=== PATIENT | female | born 1935 | race Caucasian/White ===

== ENCOUNTER 2017-02-26 13:17 | Inpatient (IN) | payer MEDICARE, MEDICAID ==
[~2017-02-26] VITALS: Ht 152.4 cm; Wt 71.9 kg
--- NOTE | 2017-02-26 00:20 | NUR ---
ACACIA ADMIN: PT REQUESTED ACACIA, WILL ADMINISTER AND CONTINUE TO FOLLOW UP. Addendum: 02/27/17 at 0245 by ALFA BOYER RN INCORRECT TIME/DATE RECORDED.
--- NOTE | 2017-02-26 14:15 | NUR ---
DIRECTOR SALES AND TRADE MARKETING NOTES PATIENT DIRECT ADMIT, 82 Y/OLD, ON DX OF CHEST PAIN, HYPERTENSION, DM. PATIENT ESTONIAN SPEAKER, V/S TAKE BP -176/75, P-60, R-19, O2-97 ROOM AIR, T-97.8, PATIENT SKIN ASSESSMENT DONE SKIN CLEAR, AMBULATORY, C/O PAIN 07/03, NO RESPIRATORY DISTRESS, BUT PATIENT REFUSED PAIN MEDICATION. SCHEDULED MEDICATION ADMINISTERED. NEEDS ATTENDED AND ANTICIPATED. MRSA OF NARES SWAB TAKEN. CALL WHITE WITHIN TO REACH, BED ALARM ON. SAFETY PRECAUTION MAINTAINED ALL THE TIME.
[2017-02-26 14:17] VITALS: BP 176/75
[2017-02-26] MEDS ORDERED: HYDROCODONE/APAP 5/325MG 1 EACH TABLET PO PRN (14:30)
[2017-02-26] MEDS ORDERED: Z GUARD REMEDY 2 OZ OINT TP PRN (14:30)
[2017-02-26] MEDS ORDERED: MAG HYDROX/AL HYDROX/SIMETH 30 ML UDC PO PRN (14:30)
[2017-02-26] MEDS ORDERED: ONDANSETRON HCL/PF 4 MG/2 ML VIAL IVP PRN (14:30)
[2017-02-26] MEDS ORDERED: MAGNESIUM HYDROXIDE 30 ML UDC PO PRN (14:30)
[2017-02-26] MEDS ORDERED: METOPROLOL TARTRATE 25 MG TABLET PO SCH (14:30)
[2017-02-26] MEDS ORDERED: ACETAMINOPHEN 325 MG TABLET PO PRN (14:30)
[2017-02-26] MEDS ORDERED: MORPHINE SULFATE INJ 10 MG/ML DISP.SYRIN IV PRN (14:30)
[2017-02-26] MEDS ORDERED: ASPI-991 PO (14:39)
[2017-02-26] MEDS ORDERED: LOSA1TAB3 PO (14:39)
[2017-02-26] MEDS ORDERED: GABA-534 PO (14:39)
[2017-02-26] MEDS ORDERED: AMLO5TAB4 PO (14:39)
[2017-02-26] MEDS ORDERED: SITA50TA PO (14:39)
[2017-02-26] MEDS ORDERED: METO25TA3 PO (14:39)
[2017-02-26] MEDS ORDERED: CAPT25TA3 PO (14:39)
[2017-02-26] MEDS ORDERED: CLOP75TA2 PO (14:39)
[2017-02-26] MEDS ORDERED: ROSU10TA PO (14:41)
[2017-02-26] MEDS ORDERED: VORT10TA PO (14:42)
[2017-02-26 16:00] VITALS: BP 170/80
--- NOTE | 2017-02-26 17:00 | NUR ---
RN NOTES PATIENT V/S TAKEN BP- 201/88, P-67, PATIENT ANXIOUS, IV PUSH ADMINISTERED APRESOLINE 10 MG/ML IV PUSH, ALSO ADMINISTERED SCHEDULED MEDICATION, OFFERED MORPHINE FOR PAIN BUT PATIENT REFUSED, NEEDS ATTENDED AND ANTICIPATED. PATIENT AMBULATORY, CONTINENT, NEEDS ATTENDED AND ANTICIPATED. CALL LIGHT WITHIN TO REACH, SAFETY PRECAUTION MAINTAINED ALL THE TIME.
[2017-02-26] MEDS: NITROGLYCERIN 30 GM TUBE TOP SCH ×2 (17:38→21:00)
[2017-02-26] MEDS: GABAPENTIN 300 MG CAPSULE PO SCH (17:38)
[2017-02-26] MEDS: ENOXAPARIN SODIUM 30 MG/0.3 ML DISP.SYRIN SQ SCH (18:06)
[2017-02-26] MEDS: hydrALAZINE HCL IV 20 MG VIAL IV PRN (18:13)
--- NOTE | 2017-02-26 19:00 | NUR ---
RN NOTES V/S RETAKEN AFTER MEDICATION BP-157/79, P-78, R-19. PATIENT CALM AT THIS TIME. FAMILY NEXT TO THE BED, NO ACUTE /NO RESPIRATORY DISTRESS AT THIS TIME. IV LINE ON LEFT AC AREA,PATIENT OM TELE MONITOR HR-65. PATIENT LYING IN THE BED, CALL LIGHT WITHIN TO REACH, ENDORSED ONCOMING NURSE FOR CONTINUATION OF CARE.
--- NOTE | 2017-02-26 19:30 | NUR ---
RN INITIAL NOTES: RECEIVED REPORT FROM JOSE VASQUES, PT IN BED, AWAKE, A/O X3 ON RA, ABLE TO UNDERSTAND AND SPEAK BASIC CYMRO, DENIES ANY CHEST PAIN ONLY CONCERNED ABOUT BLOOD PRESSURE. PT HAS LEFT AC G20, PATENT AND FLUSHING WELL, ON HL. ON TELE SINUS RHYTHM HR 91. SAFETY PRECAUTIONS FOR FALL INITIATED CALL LIGHT IN REACH, WILL CONTINUE TO MONITOR
[2017-02-26 20:00] VITALS: BP 157/79
[2017-02-26 21:00] VITALS: BP 154/71
--- NOTE | 2017-02-26 21:00 | NUR ---
NON ADMIN NITROL OINTMENT: PT RECEIVED NITROL OINTMENT AT 1738, NITROL OINTMENT SCHEDULE Q8HR, IT SONLY BEEN 3HRS, BP IS 154/71 HR 78, DENIES ANY CHEST PAIN AT THIS TIME, NITROL OINTMENT NOT ADMINISTERED AT THIS TIME, TOO CLOSE TO ADMINISTER, WILL ADMINISTER THE MEDICATION AT 0500AM TO FOLLOW WITH THE SCHEDULE MEDS, RELAYED TO ORTHOPAEDIC SURGEON
[2017-02-27] VITALS (9 sets, daily range): BP systolic 126–167; BP diastolic 66–82
--- NOTE | 2017-02-27 | NUR ---
ACCU CHECK: BLOOD SUGAR CHECKED AND REVEAL 104, NO INSULIN COVERAGE AT THIS TIME, WILL MONITOR PT FOR ANY S/S OF HYPO OR HYPER GLYCEMIA
--- NOTE | 2017-02-27 00:20 | NUR ---
ACACIA ADMIN: PT REQUESTED ACACIA, WILL ADMINISTER AND CONTINUE TO FOLLOW UP.
[2017-02-27] MEDS: ZOLPIDEM TARTRATE 5 MG TABLET PO PRN ×2 (00:25→23:01)
[2017-02-27] MEDS: BLOOD SUGAR DIAGNOSTIC 1 EACH STRIP IN SCH ×4 (00:27→17:01)
--- NOTE | 2017-02-27 02:30 | NUR ---
RN NOTES: PT SLEEPING AT THIS TIME, APPEARS CALM AND COMFORTABLE
[2017-02-27] MEDS: NITROGLYCERIN 30 GM TUBE TOP SCH (05:00)
--- NOTE | 2017-02-27 06:40 | NUR ---
rn closing notes: pt in bed, awake, denies any chest pain, bp wnl, nitro patch on left cw. iv access remains patent and flushing well. remains sinus rhythm hr 70, vs remain stable, needs attended, safety precautions for fall remains engaged, call light in reach, will endorse to day rn for chester.
--- NOTE | 2017-02-27 07:15 | NUR ---
RN OPEN NOTES RECEIVED REPORT FROM CHIEF MATE NURSE. PATIENT IS IN BED, ALERT AND ORIENTED TO NAME, PLACE AND TIME. NO SIGNS AND SYMPTOMS OF DISTRESS. DENIED PAIN. BED IN LOW POSITION, LOCKED AND 2 SIDE RAILS ARE UP. CALL LIGHT WITHIN REACH. WILL CONTINUE TO MONITOR AND ASSESS PATIENT THROUGH OUT MY SHIFT
--- NOTE | 2017-02-27 07:25 | NUR ---
DR WANG AT BEDSIDE
[2017-02-27 07:27] LABS: BASOPHILS % (AUTO) 0.4 % (0.0-2.0); EOSINOPHILS # (AUTO) 0.2 /CMM (0.0-0.7); EOSINOPHILS % (AUTO) 2.7 % (0.0-6.0); HEMATOCRIT 42 % (33-45); HEMOGLOBIN 13.9 g/dL (11.5-14.8); LYMPHOCYTES # (AUTO) 1.6 /CMM (0.8-4.8); LYMPHOCYTES % (AUTO) 24.3 % (20.0-44.0); MEAN CORPUSCULAR HEMOGLOBIN 29 PG (26.0-33.0); MEAN CORPUSCULAR HGB CONC 34 g/dl (31.0-36.0); MEAN CORPUSCULAR VOLUME 86 fL (82-100); MONOCYTES # (AUTO) 0.7 /CMM (0.1-1.30); MONOCYTES % (AUTO) 10.6 % (2.0-12.0); NEUTROPHILS # (AUTO) 4.1 /CMM (1.8-8.9); PLATELET COUNT (AUTO) 263 /CMM (150-450); RDW COEFFICIENT OF VARIATION 13.5 (11.5-15.0); RED BLOOD CELL COUNT(AUTO) 4.85 MIL/uL (4.0-5.2); WHITE BLOOD COUNT (AUTO) 6.7 K/uL (4.3-11.0)
[2017-02-27 07:44] LABS: CHOLESTEROL 245 mg/dL (<200); HDL CHOLESTEROL 37 mg/dL (40-60); LDL 174 mg/dL (0-99); TRIGLYCERIDES 154 mg/dL (30-150)
[2017-02-27 07:47] LABS: CALCIUM, SERUM 8.9 mg/dL (8.5-10.1); CARBON DIOXIDE 27 mmol/L (21-32); CHLORIDE 106 mmol/L (98-107); CREATININE 0.9 mg/dL (0.6-1.3); GLUCOSE 102 mg/dL (74-106); PHOSPHORUS 3.9 mg/dL (2.5-4.9); POTASSIUM 4.1 mmol/L (3.5-5.1); SODIUM SERUM 142 mmol/L (136-145); UREA NITROGEN, BLOOD 21 mg/dL (7-18)
[2017-02-27] MEDS: NITROGLYCERIN 30 GM TUBE TP SCH ×2 (08:14→21:02)
[2017-02-27] MEDS: CARVEDILOL 12.5 MG TABLET PO SCH ×2 (08:16→20:13)
[2017-02-27] MEDS: METOPROLOL SUCCINATE 25 MG TAB.SR.24H PO SCH (08:17)
[2017-02-27] MEDS: CLOPIDOGREL BISULFATE 75 MG TABLET PO SCH (08:17)
[2017-02-27] MEDS: VALSARTAN 80 MG TABLET PO SCH (08:18)
[2017-02-27] MEDS: AMLODIPINE BESYLATE 5 MG TABLET PO SCH ×3 (08:19→16:02)
[2017-02-27] MEDS: GABAPENTIN 300 MG CAPSULE PO SCH ×2 (08:20→16:03)
[2017-02-27] MEDS: ASPIRIN EC 81 MG TABLET.DR PO SCH (08:20)
[2017-02-27] MEDS: PANTOPRAZOLE 40 MG TABLET.DR PO SCH (08:21)
[2017-02-27] MEDS: ATORVASTATIN 10 MG TABLET PO SCH (08:21)
[2017-02-27 08:22] LABS: THYROID STIMULATING HORMONE 1.099 uIU/mL (0.358-3.74)
[2017-02-27] MEDS ORDERED: ASPIRIN 81 MG TAB.CHEW PO SCH (09:00)
[2017-02-27] MEDS ORDERED: CAPTOPRIL 25 MG TABLET PO SCH (09:00)
[2017-02-27] MEDS ORDERED: LOSARTAN/HCTZ 50-12.5MG/ 1 EA TABLET PO SCH (09:00)
--- NOTE | 2017-02-27 09:00 | NUR ---
PATIENT REFUSED NORVASC
[2017-02-27] MEDS ORDERED: HYDROMORPHONE 1 MG/1 ML DISP.SYRIN IV PRN (12:30)
--- NOTE | 2017-02-27 16:00 | NUR ---
SBP 167. HYDRALAZINE IV ADMINISTERED. 0900 DOSE OF NORVASC ADMINISTERED (AFTER PATIENT REFUSED IT IN AM)
[2017-02-27] MEDS: hydrALAZINE HCL IV 20 MG VIAL IV PRN (16:05)
--- NOTE | 2017-02-27 17:00 | NUR ---
PATIENT REFUSED TO HAVE HER BLOOD SUGAR CHECKED
--- NOTE | 2017-02-27 18:44 | NUR ---
RN CLOSING NOTES PATIENT IS IN BED. ALERT AND ORIENTED TO NAME, PLACE AND TIME. NO SIGNS AND SYMPTOMS OF DISTRESS. DENIED PAIN. PATIENT IS AMBULATORY. BED IN LOW POSITION, LOCKED AND TWO SIDE RAILS ARE UP. CALL LIGHT WITHIN REACH. IV SITE IN INTACT AND PATENT. ALL NURSING CARE ANTICIPATED AND ATTENDED FOR. CT ANGIO HEART W/ 3D FOR WEDNESDAY IN AM; CONSENT IS NEEDED 24 HOURS PRIOR TO PROCEDURE. WILL ENDORSE TO DRYING UNIT FELTING MACHINE OPERATOR NURSE FOR CLEVE.
--- NOTE | 2017-02-27 20:32 | NUR ---
RN INITIAL NOTES: RECEIVED REPORT FROM BRENDAN VASQUES, PT IN BED, AWAKE, A/O X3 ON RA, ABLE TO UNDERSTAND AND SPEAK BASIC BRUNEIAN, DENIES ANY CHEST PAIN ONLY CONCERNED ABOUT BLOOD PRESSURE. PT HAS LEFT FA G22, PATENT AND FLUSHING WELL, ON HL. SAFETY PRECAUTIONS FOR FALL INITIATED CALL LIGHT IN REACH, WILL CONTINUE TO MONITOR
[2017-02-27] MEDS: ENOXAPARIN SODIUM 30 MG/0.3 ML DISP.SYRIN SQ SCH (21:04)
--- NOTE | 2017-02-27 23:01 | NUR ---
PRN AMBIEN: PT REQUESTED FOR SLEEPING PILL, PRN AMBIEN 5MG TAB PO ADMINISTERED TO THE PT AT THIS TIME, WILL CONTINUE TO MONITOR AND REASSESS
[2017-02-28] VITALS (7 sets, daily range): BP systolic 122–161; BP diastolic 60–79
--- NOTE | 2017-02-28 | NUR ---
PT REFUSED TO HAVE HER BLOOD SUGAR CHECKED
[2017-02-28] MEDS: BLOOD SUGAR DIAGNOSTIC 1 EACH STRIP IN SCH ×4 (06:39→16:38)
--- NOTE | 2017-02-28 06:40 | NUR ---
BLOOD SUGAR CHECK: 95. NO COVERAGE PER MD
--- NOTE | 2017-02-28 06:45 | NUR ---
RN CLOSING NOTES: PT IN BED, AWAKE, DENIES ANY CHEST PAIN, BP WNL, NITRO PATCH ON RIGHT CW. IV ACCESS REMAINS PATENT AND FLUSHING WELL. VS REMAIN STABLE, NEEDS ATTENDED, SAFETY PRECAUTIONS FOR FALL REMAINS ENGAGED, CALL LIGHT WITHIN REACH, WILL ENDORSE TO DAY RN FOR CLEVE.
--- NOTE | 2017-02-28 08:00 | NUR ---
RN NOTES RECEIVED PATIENT IN THE ROOM, A/O X3, NIUEAN SPEAKER, PATIENT HAS NO RESPIRATORY DISTRESS, V/S STABLE, IV HEP LINE LEFT FOREARM INTACT, NO C/O PAIN, NO ACUTE DISTRESS, V/S TAKEN STABLE, PATIENT MED COMPLIANT, PATIENT AMBULATORY, REFUSED DVT PUMP, CONTINENT,N NEEDS ATTENDED AND ANTICIPATED, CALL WHITE WITHIN TO REACH, SAFETY PRECAUTION MAINTAINED ALL THE TIME.
[2017-02-28] MEDS: CARVEDILOL 12.5 MG TABLET PO SCH ×2 (09:00→20:02)
[2017-02-28] MEDS: PANTOPRAZOLE 40 MG TABLET.DR PO SCH (09:00)
[2017-02-28] MEDS: ATORVASTATIN 10 MG TABLET PO SCH (09:01)
[2017-02-28] MEDS: VALSARTAN 80 MG TABLET PO SCH (09:01)
[2017-02-28] MEDS: CLOPIDOGREL BISULFATE 75 MG TABLET PO SCH (09:01)
[2017-02-28] MEDS: GABAPENTIN 300 MG CAPSULE PO SCH ×2 (09:02→16:36)
[2017-02-28] MEDS: ASPIRIN EC 81 MG TABLET.DR PO SCH (09:02)
[2017-02-28] MEDS: AMLODIPINE BESYLATE 5 MG TABLET PO SCH (09:02)
[2017-02-28] MEDS: METOPROLOL SUCCINATE 25 MG TAB.SR.24H PO SCH (09:03)
[2017-02-28] MEDS: NITROGLYCERIN 30 GM TUBE TP SCH ×2 (09:04→20:02)
--- NOTE | 2017-02-28 10:22 | NUR ---
RN NOTES PATIENT IN THE ROOM, FAMILY NEXT TO THE BED, NO ACUTE DISTRESS, STABLE AT THIS TIME, CALL WHITE WITHIN TO REACH, SAFETY PRECAUTION MAINTAINED ALL THE TIME.
--- NOTE | 2017-02-28 15:00 | NUR ---
RN NOTES PATIENT IN THE ROOM, RESTING IN THE BED, NO ACUTE DISTRESS, NO RESPIRATORY DISTRESS AT THIS TIME, BS-71 MG/DL, CALL LIGHT WITHIN TO REACH, ENCOURAGED TO EXPRESS FEELINGS AND CONCERNS, SAFETY PRECAUTION, AND FALL PRECAUTION MAINTAINED ALL THE TIME. ENCOURAGED TO INCREASE FLUID INTAKE TOLERATED. CONTINUED MONITORING.
--- NOTE | 2017-02-28 16:39 | NUR ---
rn notes PATIENT IN THE ROOM, NO ACUTE DISTRESS, BS-115 MG/DL, V/S RETAKEN BOTH ARMS, LEFT ARM BP 138/70. P-63, RIGHT ARM BP 124/64, P-67, PATIENT REFUSED 1700 NEURONTIN, NO ACUTE DISTRESS. PT AMBULATORY SELF CARE, CALL WHITE NEAR TO REACH, SAFETY PRECAUTION MAINTAINED ALL THE TIME.
--- NOTE | 2017-02-28 19:00 | NUR ---
RN NOTES PATIENT IN THE BED RESTING QUIETLY, V/S STABLE, MED COMPLIANT, NO ACUTE DISTRESS, NO RESPIRATORY DISTRESS. CALL WHITE WITHIN TO REACH, SAFETY PRECAUTION MAINTAINED ALL THE TIME. ENDORSED ONCOMING NURSE FOR FOLLOW CONTINUATION OF CARE.
--- NOTE | 2017-02-28 19:30 | NUR ---
RN NOTES RECEIVED PATIENT IN BED AWAKE, OA X 3, ABLE TO MAKE NEEDS KNOWN. NO ACUTE DISTRESS NOTED. DENIES ANY PAIN AT THIS TIME. IV SITE PATENT, INTACT; FLUSHED. ON LOW BED WITH BILATERAL UPPER SIDE RAILS UP. SAFETY REMINDERS GIVEN. CALL LIGHT WITHIN EASY REACH. WILL CONTINUE TO MONITOR.
[2017-02-28] MEDS: ENOXAPARIN SODIUM 30 MG/0.3 ML DISP.SYRIN SQ SCH (20:07)
[2017-02-28] MEDS: ZOLPIDEM TARTRATE 5 MG TABLET PO PRN (21:50)
[2017-03-01] MEDS: BLOOD SUGAR DIAGNOSTIC 1 EACH STRIP IN SCH ×5 (06:37→22:00)
--- NOTE | 2017-03-01 06:53 | NUR ---
RN NOTES PATIENT ASLEEP, EASILY AROUSABLE. RESPIRATIONS EVEN. NO SIGNS OF PAIN NOTED. NO SYMPTOMS OF HYPER/HYPOGLYCEMIA. DUE MEDS GIVEN WITH NO ASE NOTED. NEEDS ATTENDED. SAFETY PRECAUTIONS AND COMFORT MEASURES IN PLACE. WILL GIVE REPORT TO DAY SHIFT FOR CONTINUITY OF CARE.
--- NOTE | 2017-03-01 07:30 | NUR ---
MS RN RECEIVED ONBED, AWAKE,ALERT,ORIENTED X4,UZBEK SPAEKING LADY, NOT IN ANY FORM OF DISTRESS, RESPIRATIONS EVEN AND UNLABORED,NO SOB NOTED, DENIES PAIN AT THIS TIME, WILL MONITOR PATIENT.
[2017-03-01 08:00] VITALS: BP 146/74
--- NOTE | 2017-03-01 08:30 | NUR ---
RN NPO AT THIS TIME, FOE CT ANGIO TODAY.
[2017-03-01] MEDS: NITROGLYCERIN 30 GM TUBE TP SCH (09:00)
[2017-03-01] MEDS ORDERED: IOHEXOL-350 100 ML VIAL IV ONE (11:21)
[2017-03-01] MEDS ORDERED: CT SWABBABLE VALVE TRANS SET 1 EA INFUS.SET MC ONE (11:21)
[2017-03-01] MEDS ORDERED: IV NS 0.9% 250 ML IV ONE (11:22)
--- NOTE | 2017-03-01 11:25 | NUR ---
ms rn went down for ct angio,all needs attended.
--- NOTE | 2017-03-01 11:30 | NUR ---
OVERHAULER HELPER RECEIVED PT FROM 3W TO CTA AOX4 NO DISTRESS NOTED STARTED IV R AC G 18 PLACED PT ON 4LNC AND MONITOR FOR HR, STANDING ORDERS FOLLOWED WILL CONTINUE TO MONITOR AND START PROCEDURE.
[2017-03-01] MEDS ORDERED: NITROGLYCERIN 0.4 MG/TAB BOTTLE ONE (11:40)
[2017-03-01] MEDS ORDERED: METOPROLOL TARTRATE INJ 5 MG/5 ML AMPUL ONE (11:41)
[2017-03-01] MEDS ORDERED: DEXTROSE 50%-WATER 50 ML DISP.SYRIN IV PRN (12:30)
[2017-03-01] MEDS ORDERED: INSULIN REGULAR, HUMAN 100 UNIT/ML 3 ML VIAL SQ PRN (12:30)
[2017-03-01] MEDS: PANTOPRAZOLE 40 MG TABLET.DR PO SCH (12:53)
[2017-03-01] MEDS: GABAPENTIN 300 MG CAPSULE PO SCH ×2 (12:53→15:51)
[2017-03-01] MEDS: ATORVASTATIN 10 MG TABLET PO SCH (12:53)
[2017-03-01] MEDS: CLOPIDOGREL BISULFATE 75 MG TABLET PO SCH (12:53)
[2017-03-01] MEDS: ASPIRIN EC 81 MG TABLET.DR PO SCH (12:53)
[2017-03-01] MEDS: VALSARTAN 80 MG TABLET PO SCH (12:54)
[2017-03-01] MEDS: METOPROLOL SUCCINATE 25 MG TAB.SR.24H PO SCH (12:55)
[2017-03-01] MEDS: AMLODIPINE BESYLATE 5 MG TABLET PO SCH (15:51)
[2017-03-01] MEDS: CARVEDILOL 12.5 MG TABLET PO SCH ×2 (15:51→21:00)
[2017-03-01 16:00] VITALS: BP 170/83
[2017-03-01] MEDS ORDERED: NITROGLYCERIN 30 GM TUBE TP SCH (16:00)
--- NOTE | 2017-03-01 16:00 | NUR ---
ms rn due meds given, blood pressure high, dr. goins is aware,w/ orders made and carried out.
--- NOTE | 2017-03-01 16:30 | NUR ---
ms rn for cardiac cath in am per dr. goins order, patient will be npo post midnight, daughter is aware.
--- NOTE | 2017-03-01 17:00 | NUR ---
ms rn - bp rechecked, 132/70, no distress noted.
[2017-03-01] MEDS: hydrALAZINE HCL 50 MG TABLET PO SCH (17:38)
--- NOTE | 2017-03-01 18:18 | NUR ---
ms rn on bed, no distress noted,all needs attended.
--- NOTE | 2017-03-01 19:35 | NUR ---
TELE/RN NOTES RECEIVED PT. LYING IN BED RESTING. PT. IS EASILY AROUSABLE TO NAME. BREATHING EVEN AND UNLABORED ON ROOM AIR. NO SOB, RESPIRATORY DISTRESS OR COMPLAINTS OF PAIN NOTED AT THIS TIME. NO COMPLAINTS OF CHEST PAIN NOTED AT THIS TIME. PT. WITH RIGHT AC 18 GAUGE IV SALINE LOCK PRESENT, PATENT AND INTACT. PER DAYSHIFT NURSE PT. IS TO BE NPO AT MIDNIGHT BECAUSE PT. WILL BE GOING FOR CARDIAC CATHETERIZATION TOMORROW AT [facility]. BED LOCKED AND IN LOWEST POSITION, SIDE RAILS UP X2, CALL LIGHT WITHIN REACH, WILL CONTINUE TO MONITOR. Addendum: 03/01/17 at 1947 by BEN BROUSSARD RN PT. WITH EXTERNAL PROPERTY COORDINATOR PRESENT AND INTACT. CURRENT RHYTHM = SINUS REGINA HR 56.
[2017-03-01 20:00] VITALS: BP 126/72
[2017-03-01 20:45] VITALS: BP 126/72
[2017-03-01] MEDS: ENOXAPARIN SODIUM 30 MG/0.3 ML DISP.SYRIN SQ SCH (21:00)
--- NOTE | 2017-03-01 21:13 | NUR ---
TELE/RN NOTES PT. IS GOING FOR CARDIAC CATH. TOMORROW AT [facility]. CLARIFIED LOVENOX ORDER WITH EPIC LABORER PRESTRESSED CONCRETE DUNCAN GONSALEZ. PER DUNCAN GONSALEZ OK TO HOLD LOVENOX. WILL CARRY OUT ORDER. WILL CONTINUE TO MONITOR.
[2017-03-02 00:52] VITALS: BP 136/59
[2017-03-02 04:06] VITALS: BP 149/68
[2017-03-02] MEDS ORDERED: NITROGLYCERIN 30 GM TUBE TP SCH (06:00)
--- NOTE | 2017-03-02 06:45 | NUR ---
TELE/RN NOTES PT. CONTINUES TO REFUSE ACCUCHECKS. EDUCATED PT. ON IMPORTANCE OF MONITORING BLOOD SUGAR LEVELS. PT. VERBALIZED UNDERSTANDING, STATES SHE FEELS FINE AND CONTINUES TO REFUSE. WILL CONTINUE TO MONITOR.
[2017-03-02] MEDS: BLOOD SUGAR DIAGNOSTIC 1 EACH STRIP IN SCH ×2 (06:51→12:00)
--- NOTE | 2017-03-02 06:55 | NUR ---
TELE/RN NOTES PT. IS LYING IN BED RESTING. BREATHING EVEN AND UNLABORED ON ROOM AIR. NO SOB, RESPIRATORY DISTRESS OR COMPLAINTS OF PAIN NOTED AT THIS TIME. NO COMPLAINTS OF CHEST PAIN NOTED AT THIS TIME. PT. WITH RIGHT AC 18 GAUGE IV SALINE LOCK PRESENT, PATENT AND INTACT. PT. HAS BEEN NPO SINCE MIDNIGHT BECAUSE PT. WILL BE GOING FOR CARDIAC CATHETERIZATION TODAY AT [facility]. ALL PT. NEEDS MET. BED LOCKED AND IN LOWEST POSITION, SIDE RAILS UP X2, CALL LIGHT WITHIN REACH, WILL ENDORSE TO DAYSHIFT NURSE FOR CONTINUITY OF CARE.
[2017-03-02 07:04] VITALS: BP 155/79
--- NOTE | 2017-03-02 07:30 | NUR ---
PHOTORESIST CONTACT PRINTER NOTE RECEIVED SBAR REPORT AT THE BEDSIDE. PATIENT IS A/O X3, AWAKE AND RESPONSIVE. DENIES PAIN/DISCOMFORT AT THIS TIME. PATIENT IS IN BED, BED IS LOCKED IN THE LOWEST POSITION, SIDE RAILS UP X2. CALL LIGHT WITHIN REACH. PATIENT EDUCATED TO USE THE CALL LIGHT TO CALL FOR ASSISTANCE. PATIENT EDUCATED ABOUT UPCOMING TRANSFER TO [facility] CAT LAB. VERBALIZED UNDERSTANDING. WILL CONTINUE TO MONITOR/ REASSESS. WILL PREPARE THE DISCHARGE INSTRUCTIONS/EDUCATION.
[2017-03-02 07:53] LABS: INR 0.95 (0.87-1.13); PROTHROMBIN TIME 9.9 SECS (9.5-12.7)
[2017-03-02 08:00] VITALS: BP 155/79
--- NOTE | 2017-03-02 08:30 | NUR ---
LAUNCH CHECK OUT NOTE PER DR PADILLA PATIENT TO HAVE A LIGHT BREAKFAST. DIETARY NOTIFIED.
[2017-03-02] MEDS: ASPIRIN EC 81 MG TABLET.DR PO SCH (09:00)
[2017-03-02] MEDS: ATORVASTATIN 10 MG TABLET PO SCH (09:00)
[2017-03-02] MEDS: hydrALAZINE HCL 50 MG TABLET PO SCH ×2 (09:00→13:10)
--- NOTE | 2017-03-02 09:51 | NUR ---
TYPE PROOF REPRODUCER NOTE Came to administer patient's medications. patient asked to come back later.
[2017-03-02] MEDS: CLOPIDOGREL BISULFATE 75 MG TABLET PO SCH (11:05)
[2017-03-02] MEDS: PANTOPRAZOLE 40 MG TABLET.DR PO SCH (11:06)
[2017-03-02] MEDS: GABAPENTIN 300 MG CAPSULE PO SCH (11:06)
[2017-03-02] MEDS: CARVEDILOL 12.5 MG TABLET PO SCH (11:13)
[2017-03-02] MEDS: AMLODIPINE BESYLATE 5 MG TABLET PO SCH (11:14)
[2017-03-02] MEDS: VALSARTAN 80 MG TABLET PO SCH (11:15)
--- NOTE | 2017-03-02 11:50 | NUR ---
FASHION STYLIST NOTE TELEPHONE REPORT GIVEN TO [facility] AMPHIBIOUS OPERATIONS OFFICER RN MISSAEL.
[2017-03-02 12:00] VITALS: BP 143/73
--- NOTE | 2017-03-02 12:08 | NUR ---
POTATO CHIP COOKER MACHINE NOTE PATIENT REFUSED BLOOD GLUCOSE TEST STATING: "I DON'T WANT TO BE POCKED, I RARELY EVER CHECK BY BLOOD SUGAR AT HOME AND IT IS ALWAYS NORMAL. I DON'T LIKE NEEDLES'.
--- NOTE | 2017-03-02 13:48 | NUR ---
EGG BUYER NOTE DISCHARGE INSTRUCTIONS PROVIDED TO PATIENT AND THE DAUGHTER AT THE BEDSIDE. PATIENT/DAUGHTER VERBALIZED FULL UNDERSTANDING OF THE TEACHING. AWAITING FOR THE AMBULANCE TO HEALTH INFORMATION CODER THE PATIENT.
[2017-03-02 14:14] VITALS: BP 160/87
--- NOTE | 2017-03-02 14:14 | NUR ---
HOST/HOSTESS RESTAURANT NOTE SBAR REPORT GIVEN TO FREDRICK VASQUES ACCOMPANYING THE PATIENT TO [facility]. PATIENT IS LEAVING THE UNIT IN STABLE CONDITION. SPO2 98% ON RA. DENIES CHEST PAIN/DISCOMFORT. DENIES SOB. PATIENT IS LEAVING THE UNIT IN STABLE CONDITION VIA GURNEY ACCOMPANIED BY LAYO ALCALA AND AMBULANCE STAFF.
--- NOTE | 2017-03-02 18:35 | NUR ---
HELMET HAT SWEATBAND PUNCHER NOTE PATIENT HAS NOT RETURNED TO THE UNIT YET. WILL ENDORSE TO THE NEXT SHIFT FOR CLEVE IN CASE IF THE PATIENT RETURNS LATER.
--- NOTE | 2017-03-02 19:05 | NUR ---
AUDIO/VISUAL MANAGER NOTES: NO PATIENT IN ROOM/BED. WAS ENDORSED FROM AN NURSE THAT PT IS AT [facility] FOR CARDIAC CATH. PT LEFT AT 02:16PM.
--- NOTE | 2017-03-02 21:21 | NUR ---
TURNTABLE MAN NOTES: CHARGE NURSE FOLLOWED UP WITH PT IN [facility]. SPOKE TO LAYO KHANNA. PT WILL STAY AT [facility] AND PT IS NOW CANDIDATE FOR OPEN HEART SURGERY. PT NO LONGER COMING BACK TO [facility]. WILL NOT BE ADMITTED AT [facility].
== END 2017-03-02 21:20 | disposition short-term general hospital (02) | DRG 303 ==
LOC: TELE 13:17 → MED 02-27 08:09 → TELE 03-01 16:16
PROVIDERS: ADMIT Internal Medicine; ATTEND Internal Medicine
DX: I25.110 Atherosclerotic heart disease of native coronary artery with unstable angina pectoris (principal); E44.0 Moderate protein-calorie malnutrition; E11.40 Type 2 diabetes mellitus with diabetic neuropathy, unspecified; N28.1 Cyst of kidney, acquired; I10 Essential (primary) hypertension; E66.9 Obesity, unspecified; E78.5 Hyperlipidemia, unspecified; I25.2 Old myocardial infarction; Z79.899 Other long term (current) drug therapy; Z79.82 Long term (current) use of aspirin; Z79.4 Long term (current) use of insulin; K76.89 Other specified diseases of liver
CPT/HCPCS: 36415; 75574; 80048-TC; 80061-TC; 82962-TC; 83735-TC; 84100-TC; 84439-TC; 84443-TC; 84484-TC; 85025-TC; 85610-TC; 87081-TC; 93307-TC; J0360; J1650; J1815; J2270; J3490; J7050; Q9967; Z7610